=== PATIENT | male | born 1965 | race Caucasian/White ===

== ENCOUNTER 2018-05-10 11:07 | Outpatient (CLI) | payer BC ==
[~2018-05-10] VITALS: Ht 172.7 cm; Wt 118.2 kg
--- NOTE | ~2018-05-10 | HEMODYNAMI ---
PATIENT:RICHARDSON SALAZAR MEDICAL RECORD: [id number] : 63 LOCATION:[facility] ADMISSION DATE: 05/10/18 Generatedon:05/10/201813:23 Patient name: RICHARDSON SALAZAR Patient #: [id number] SSN: : 1965 Date of study: 05/10/2018 Page: Of Hemodynamic Procedure Report Patient Data Patient Demographics Procedure consent was obtained First Name: RICHARDSON Gender: Male Last Name: MARTIN : 1965 Patient #: [id number] Age: 52 year(s) Race: Unknown Additional ID: [id number] Contact details [address]: [address] [place] [address] State: [place] City: [place] Zip code: [address] Past Medical History Allergies: No known allergies Admission Admission Data Admission Date: 05/10/2018 Admission Time: 11:07 Height (in.): 68 BSA: 2.32 (m2) Height (cm.): 172.72 BMI: 41.14 (kg/m2) Weight (lbs.): 270.6 Weight (kg.): 122.74 Lab Results Lab Result Date: 05/10/2018 Lab Result Time: 0:00 Biochemistry Name Units Result Min Max BUN mg/dl 17 --(---*)-- 7 18 Creatinine mg/dl 0.9 --(-*--)-- 0.6 1.3 CBC Name Units Result Min Max Hemoglobin g/dl 14.5 --(*---)-- 13.5 17.5 Procedure Procedure Types Cath Procedure Diagnostic Procedure Sedation Charges Moderate Sedation up to 15 minutes Peripheral Cath Diagnostic Procedure Salesforce Specialist Peripheral Procedures Cedti-Eawzlsx-Hpl-Off Procedure Description Procedure Date Procedure Date: 05/10/2018 Procedure Start Time: 13:10 Procedure End Time: 13:19 Procedure Staff Name Function Woodrow Cook MD Performing Physician Torey Godinez RT Monitor Chelsea Shukla RT Scrub Emil Stephens RN Nurse Procedure Data Cath Procedure Fluoroscopy Diagnostic fluoroscopy Total fluoroscopy Time: 0.7 time: 0.7 min min Diagnostic fluoroscopy Total fluoroscopy dose: 272 dose: 272 mGy mGy Contrast Material Contrast Material Type Amount (ml) Isovue 300 89 Entry Location Entry Primary Successful Side Size Upsize Upsize Entry Closure Succes sful Closure Location (Fr) 1 (Fr) 2 (Fr) Remarks Device Remarks Femoral Right 5 Fr Exoseal artery Estimated blood loss: 5 ml Diagnostic catheters Device Type Used For End Catheter Placement DIAGNOSTIC UF 5Fr Procedure catheter ([id number]) Procedure Complications No complications Procedure Medications Medication Administration Route Dosage Oxygen etCO2 Nasal cannula 2 l/min Lidocaine 2% added to field 20 Heparin Flush Bag added to field 2 bags (1000units/500ml NS) 0.9% NaCl I.V. 100 ml/hr Versed I.V. 2 mg Fentanyl I.V. 100 mcg Versed I.V. 2 mg Fentanyl I.V. 100 mcg Versed I.V. 1 mg Fentanyl I.V. 50 mcg Versed I.V. 1 mg Hemodynamics Rest BSA: 2.32 (m2) HGB: 14.5 (g/dl) O2 Consumption: Estimated: 278.35 (ml/min) O2 Co nsumption indexed: Estimated:119.98 (ml/min/m) Heart Rate: 73 (bpm) Snapshots Pre Cath Intra NCS Post Cath Vital Signs Time Heart Resp SPO2 etCO2 NIBP (mmHg) Rhythm Pain Sedation Rate (ipm) (%) (mmHg) Status Level (bpm) 12:44:49 66 12 96 0 133/83(109) NSR 0 (11) 10(A) , No pain 12:49:11 67 14 96 0 144/82(115) NSR 0 (11) 10(A) , No pain 12:53:29 65 15 94 36.1 131/85(117) NSR 0 (11) 10(A) , No pain 12:57:45 80 13 93 0 146/95(111) NSR 0 (11) 10(A) , No pain 13:02:07 76 16 98 31.5 131/85(115) NSR 0 (11) 10(A) , No pain 13:06:31 67 16 97 44.3 129/76(96) NSR 0 (11) 10(A) , No pain 13:10:47 80 14 94 24 135/93(107) NSR 0 (11) 9(A) , No pain 13:15:10 86 15 96 42.1 139/84(110) NSR 0 (11) 9(A) , No pain 13:20:15 87 21 99 52.6 140/83(109) NSR 0 (11) 10(A) , No pain Medications Time Medication Route Dose Verified Delivered Reason Notes Eff ectiveness by by 12:50:27 Oxygen etCO2 2 Woodrow Buffie used for Nasal l/min Joey Stephens RN procedure cannula 12:50:34 Lidocaine 2% added 20ml Woodrow Woodrow for local to vial Joey Cook MD anesthetic field 12:50:40 Heparin Flush added 2 Woodrow Woodrow used for Bag to bags Joey Cook MD procedure (1000units/500ml field NS) 12:50:50 0.9% NaCl I.V. 100 Woodrow Buffie Per ml/hr Joey Stephens RN physician 12:56:07 Versed I.V. 2 mg Woodrow Buffie for Joey Stephens RN sedation 12:56:13 Fentanyl I.V. 100 Woodrow Buffie for mcg Joey Stephens RN sedation 13:01:53 Versed I.V. 2 mg Woodrow Buffie for Joey Stephens RN sedation 13:01:57 Fentanyl I.V. 100 Woodrow Buffie for mcg Joey Stephens RN sedation 13:06:06 Versed I.V. 1 mg Woodrow Buffie for Joey Stephens RN sedation 13:06:10 Fentanyl I.V. 50 Woodrow Buffie for mcg Joey Stephens RN sedation 13:14:40 Versed I.V. 1 mg Woodrow Buffie for Joey Stephens RN sedation Procedure Log Time Note 12:16:01 Signed procedure consent form obtained from patient. 12:16:02 Time tracking: Regular hours (M-F 7:00 - 5:00) 12:16:06 Plan of Care:Hemodynamics will remain stable., Cardiac rhythm will remain stable., Comfort level will be maintained., Respiratory function will remain adequate., Patient/ family verbilizes understanding of procedure., Procedure tolerated without complication., Recovers from procedure without complications.. 12:25:40 H&P Date Dictated: 04/16/2018 Within 30 days and on chart., H&P Addendum completed by physician on day of procedure. (MUST COMPLETE FOR ALL OUTPATIENTS). 12:25:46 Patient allergic to No known allergies 12:25:54 Patient Height : 68 inches 12:26:02 Patient Weight : 270.6 lbs 12:27:10 Lab Result : Creatinine 0.9 mg/dl 12:27:10 Lab Result : BUN 17 mg/dl 12:27:10 Lab Result : Hemoglobin 14.5 g/dl 12:31:44 Chelsea Shukla RT(R) sent for patient. Start room use. 12:40:14 Patient received from Pre/Post Procedure Room to CCL 1 Alert and oriented. Tansferred to table in Supine position. 12:40:15 Warm blankets applied, and paul hugger turned on for patient comfort. 12:40:16 Correct patient and procedure confirmed by team. 12:40:16 ECG and BP/O2 sat monitors applied to patient. 12:40:17 Pre-procedure instructions explained to patient. 12:40:17 Pre-op teaching completed and patient verbalized understanding. 12:40:18 Family in waiting room. 12:40:19 Patient NPO since Midnight. 12:40:28 Is the patient allergic to Iodine/contrast media? No. 12:43:09 Vital chart was started 12:50:27 Oxygen 2 l/min etCO2 Nasal cannula was administered by Emil Stephens RN; used for procedure; 12:50:34 Lidocaine 2% 20ml vial added to field was administered by Woodrow Cook MD; for local anesthetic; 12:50:40 Heparin Flush Bag (1000units/500ml NS) 2 bags added to field was administered by Woodrow Cook MD; used for procedure; 12:50:46 Baseline sample Acquired. 12:50:50 0.9% NaCl 100 ml/hr I.V. was administered by Emil Stephens RN; Per physician; 12:50:51 Rhythm: sinus rhythm 12:51:00 Full Disclosure recording started 12:51:04 Is patient on blood thinner?No 12:51:06 Patient diabetic? Yes. 12:51:08 If diabetic: On Metformin? Yes 12:51:11 If on Metformin: Last Dose? 05/08/2018 12:51:24 Previous problem with sedation/anesthesia? No ? 12:51:26 Snore? No 12:51:27 Sleep apnea? No 12:51:28 Deviated septum? No 12:51:29 Opens mouth fully? Yes 12:51:29 Sticks out tongue? Yes 12:51:31 Airway obstruction? No ? 12:51:34 Dentures? No ? 12:51:36 Pre procedure: right dorsailis pedis pulse 2+ Normal; easily identifiable; not easily obliterated 12:51:38 Pre procedure: left dorsailis pedis pulse 2+ Normal; easily identifiable; not easily obliterated 12:51:40 Patient pain scale 0/10 ?. 12:51:44 IV patent on arrival in left forearm with 0.9% NaCl at [facility]. 12:51:47 Lab results completed and on chart. 12:51:50 Bilateral groins area was prepped with chlora-prep and draped in sterile fashion 12:51:51 Alarms reviewed by R. N. 12:51:52 Sharps counted by scrub and verified by R.N. 12:51:54 ACIST Syringe (33308) opened to sterile field. 12:51:55 Bag Decanter (2002S) opened to sterile field. 12:51:56 Medline Cath Pack ([id number]) opened to sterile field. 12:51:57 ACIST Hand Control (43453) opened to sterile field. 12:51:57 ACIST Manifold (61160) opened to sterile field. 12:51:58 Tegaderm 4 x 4 (1626W) opened to sterile field. 12:52:01 DIAGNOSTIC WIRE .035 260cm J wire (842820) opened to sterile field. 12:52:15 SHEATH 5FR [place] (XYI833) opened to sterile field. 12:55:42 Physician arrived 12:55:42 --------ALL STOP TIME OUT------ 12:55:43 Final Timeout: patient, procedure, and site verified with staff and physician. All members of the team are in agreement. 12:55:44 Bilateral groins site verified by team. 12:55:47 Physical assessment completed. ASA score P 2 - A patient with mild systemic disease as per Woodrow Cook MD. 12:55:50 Sedation plan: IV Moderate Sedation Medication:Versed, Fentanyl 12:56:07 Versed 2 mg I.V. was administered by Buffie Stephens RN; for sedation; 12:56:13 Fentanyl 100 mcg I.V. was administered by Emil Stephens RN; for sedation; 13:01:53 Versed 2 mg I.V. was administered by Emil Stephens RN; for sedation; 13:01:57 Fentanyl 100 mcg I.V. was administered by Emil Stephens RN; for sedation; 13:02:36 Zero performed for pressure channel P1 13:06:06 Versed 1 mg I.V. was administered by Emil Stephens RN; for sedation; 13:06:10 Fentanyl 50 mcg I.V. was administered by Emil Stephens RN; for sedation; 13:10:48 Procedure started. 13:10:52 Local anesthetic to right femoral artery with Lidocaine 2% by Woodrow Cook MD.INITIAL ACCESS ONLY 13:12:04 A 5 Fr sheath was inserted into the Right Femoral artery 13:12:15 A DIAGNOSTIC UF 5Fr catheter ([id number]) was advanced over the wire and used for Procedure. 13:13:21 Abdominal angiogram w/ runoff was performed. 13:14:18 Right leg runoff performed. 13:14:40 Versed 1 mg I.V. was administered by Emil Stephens RN; for sedation; 13:14:41 Left leg runoff performed. 13:15:55 Catheter removed. 13:16:05 EXOSEAL 5Fr (EX500) opened to sterile field. 13:16:12 Sheath removed intact; hemostasis achieved with Exoseal to the Right Femoral artery. 13:16:18 Procedure ended.(Physican Out) 13:16:39 Fluoroscopy time 00.70 minutes. 13:16:43 Fluoroscopy dose: 272 mGy 13:16:43 Flurop Dose total: 272 13:16:46 Contrast amount:Isovue 300 89ml. 13:16:47 Sharps counted by scrub and verified by R.N. 13:16:51 Post-op/insertion site Right Femoral artery dressed using a 4 x 4 and Tegaderm. 13:16:54 Post right femoral artery:stable, soft, clean and dry 13:16:56 Post Procedure Pulses reassessed and unchanged 13:16:57 Post-procedure physical assessment completed. ASA score P 2 - A patient with mild systemic disease as per Woodrow Cook MD. 13:16:59 Post procedure rhythm: unchanged. 13:17:02 Estimated blood loss: 5 ml 13:17:03 Post procedure instruction explained to patient.Patient verbalizes understanding. 13:17:04 Patient needs reinforcement of post procedure teaching. 13:17:49 Procedure type changed to Cath procedure, Diagnostic procedure, Sedation Charges, Moderate Sedation up to 15 minutes, Peripheral Cath Diagnostic Procedure, Salesforce Specialist Peripheral Procedures, Lyjdr-Xzjoqxz-Tom-Off 13:19:26 Procedure and supply charges have been captured, reviewed, submitted and are correct. 13:19:29 Procedure Complication : No complications 13:19:31 Vital chart was stopped 13:19:32 See physician's report for complete and final results. 13:19:33 Report given to Pre/Post Procedure Room. 13:19:35 Patient transfered to Pre/Post Procedure Room with Stretcher. 13:19:42 Procedure ended. 13:19:42 Full Disclosure recording stopped 13:19:45 End room use (Document Last) Device Usage Item Name Manufacture Quantity Catalog Hospital Part Current Minimal L ot# / Number Charge Number Stock Stock Serial# Code ACIST Acist 1 70360 [id number] 004076 301641 20 Syringe Medical (29765) Systems Inc Bag Microtek 1 2001S 411016 83825 074105 5 Decanter Medical Inc. (2001S) Medline Medline 1 [id number] 419610 73237 170694 5 Cath Pack ([id number]) ACIST Hand Acist 1 44252 201812 037662 374103 5 Control Medical (99666) Systems Inc ACIST Acist 1 20554 290364 482310 521969 5 Manifold Medical (06883) Systems Inc Tegaderm 4 3M 1 1626W 122424 011265 623774 5 x 4 (1626W) DIAGNOSTIC St Vu 1 458898 547324 899489 168566 30 WIRE .035 260cm J wire (002448) SHEATH 5FR Terumo 1 [id number] 484297 879498 073789 40 [place] ([id number]) DIAGNOSTIC Cardinal 1 [id number] 347605 966988 185082 10 UF 5Fr Health catheter ([id number]) EXOSEAL 5Fr Cardinal 1 EX500 351064 549750 208233 10 (EX500) Health Signature Audit [place] Stage Time Signature Unsigned Intra-Procedure 05/10/2018 Torey Godinez 1:23:51 PM RT(R) Signatures Monitor : Torey Godinez RT Signature : Date : Time : [place] [id number] [facility] [place] [address]
[2018-05-10] MEDS ORDERED: GLUCOPHAGE1000 MG PO (11:21)
[2018-05-10] MEDS ORDERED: NORVASC5 MG PO ×2 (11:25→11:32)
[2018-05-10] MEDS ORDERED: AMBIEN10 MG PO (11:25)
[2018-05-10] MEDS ORDERED: MOBIC7.5 MG PO (11:26)
[2018-05-10] MEDS ORDERED: ULTRAM50 MG PO (11:28)
[2018-05-10] MEDS ORDERED: LYRICA75 MG PO (11:29)
[2018-05-10] MEDS ORDERED: DIOVAN160 MG PO (11:30)
[2018-05-10] MEDS ORDERED: FUROSEMIDE20 MG PO (11:30)
[2018-05-10] MEDS ORDERED: GLIMEPIRIDE4 MG PO (11:31)
[2018-05-10 11:47] VITALS: BP 127/76; Ht 172.7 cm; Wt 118.2 kg
[2018-05-10 11:47] LABS: BASOPHILS 0.4 % (0-2); EOSINOPHILS 3.6 % (0-7); HEMATOCRIT 43.9 % (42.0-54.0); HEMOGLOBIN 14.5 g/dL (13.5-17.5); IMMATURE GRANULOCYTES 0.4 % (0-5); LYMPHOCYTES 23.6 % (15-50); MCH 26.6 pg (26.0-34.0); MCV 80.6 fL (80.0-100.0); MEAN PLATELET VOLUME 10.9 fL (7.4-10.4); MONOCYTES 8.7 % (2-11); NEUTROPHILS 63.3 % (40-80); PLATELET COUNT 174 10x3/uL (130-400); RBC 5.45 10x6/uL (4.20-6.10); RDW 13.1 % (11.5-14.5); WBC 5.5 10x3/uL (4.8-10.8)
[2018-05-10 12:05] LABS: CALC OSMOLALITY 278 mosm/kg (275-300); CALCIUM 9.3 mg/dL (8.5-10.1); CARBON DIOXIDE 28.6 mmol/L (21.0-32.0); CHLORIDE - SERUM 102 mmol/L (98-107); CREATININE - SERUM 0.9 mg/dL (0.6-1.3); GLUCOSE 125 mg/dL (74-106); SODIUM 138 mmol/L (136-145); UREA NITROGEN 17 mg/dL (7-18); eGFR NON AFRICAN AMERICAN > 90 mL/min (90-120)
[2018-05-10 12:06] LABS: POTASSIUM - SERUM 4.9 mmol/L (3.5-5.1)
== END 2018-05-10 15:30 | disposition home or self-care (01) ==
LOC: D.CATH 11:07
PROVIDERS: Internal Medicine Cardiovascular Disease
DX: I70.209 Unspecified atherosclerosis of native arteries of extremities, unspecified extremity (principal); Z01.812 Encounter for preprocedural laboratory examination